=== PATIENT | female | born 1985 | race Asian ===

== ENCOUNTER 2020-04-14 14:17 | Emergency (ER) | payer BC ==
[~2020-04-14] VITALS: Ht 180.3 cm; Wt 45.4 kg
[2020-04-14 14:19] VITALS: BP_SYST 136
--- NOTE | 2020-04-14 14:19 | NUR ---
Patient to ER bed 06 to gown for evaluation. Side rails up.
--- NOTE | 2020-04-14 14:26 | NUR ---
Pt came to ER for anxiety, dyspnea, states she has felt this before and almost passed out last time. Pt resting in [facility] comfortably, VSS, does not appear to be in any distress.
--- NOTE | 2020-04-14 14:29 | NUR ---
ER at bedside examining patient.
[2020-04-14] MEDS ORDERED: LORazepam 2 MG/ML VIAL IM ONE (14:30)
--- NOTE | 2020-04-14 14:49 | NUR ---
Patient given written and verbal discharge instructions and verbalizes understanding. ER MD discussed with patient the results and treatment provided. Patient in stable condition. ID arm band removed. Patient educated on pain management and to follow up with PMD. Pain Scale 0/10. Opportunity for questions provided and answered. Medication side effect fact sheet provided.
== END 2020-04-14 14:48 | disposition home or self-care (01) ==
LOC: SED 14:17
DX: F41.9 Anxiety disorder, unspecified (principal)
CPT/HCPCS: 99281